=== PATIENT | female | born 1990 | race Caucasian/White ===

== ENCOUNTER 2019-02-24 04:31 | Emergency (ER) | payer BC ==
[~2019-02-24] VITALS: Ht 162.6 cm; Wt 81.6 kg
[2019-02-24] MEDS ORDERED: BIRTHCONTROL (04:37)
[2019-02-24] MEDS ORDERED: CITA20TA16 PO (04:37)
--- NOTE | 2019-02-24 04:51 | NUR ---
Dr. Oropeza at bedside for MSE.
[2019-02-24] MEDS ORDERED: KETOROLAC TROMETHAMINE 30 MG INJ IVP ONE (05:00)
[2019-02-24] MEDS ORDERED: FAMOTIDINE. 20 MG/2 ML VIAL IV ONE ×2 (05:00→05:09)
--- NOTE | 2019-02-24 05:10 | NUR ---
Pt provided urine sample, sent to lab.
[2019-02-24 05:25] LABS: BASOPHILS # (AUTO) 0.1 K/uL (0.0-8.0); BASOPHILS % (AUTO) 0.8 % (0.0-2.0); EOSINOPHILS # (AUTO) 0.2 K/uL (0.0-0.7); EOSINOPHILS % (AUTO) 2.3 % (0.0-7.0); HEMATOCRIT 38.6 % (31.2-41.9); LYMPHOCYTES # (AUTO) 2.8 K/uL (20.0-40.0); LYMPHOCYTES % (AUTO) 42.3 % (20.5-51.5); MEAN CORPUSCULAR HEMOGLOBIN 30.2 uug (24.7-32.8); MEAN CORPUSCULAR HGB CONC 34 g/dL (32.3-35.6); MEAN CORPUSCULAR VOLUME 89.6 fL (75.5-95.3); MONOCYTES # (AUTO) 0.5 K/uL (2.0-10.0); MONOCYTES % (AUTO) 7.7 % (0.0-11.0); NEUTROPHILS # (AUTO) 3.1 K/uL (1.8-8.9); NEUTROPHILS % (AUTO) 46.9 % (38.5-71.5); PLATELET COUNT (AUTO) 261 K/uL (179-408); RED BLOOD CELL COUNT(AUTO) 4.31 MIL/uL (3.63-4.92); WHITE BLOOD COUNT (AUTO) 6.6 K/uL (3.8-11.8)
[2019-02-24 05:28] LABS: *BILIRUBIN,URIN NEGATIVE (NEGATIVE); *BLOOD, URINE 2+ (NEGATIVE); *CLARITY,URINE CLEAR (CLEAR); *COLOR,URINE YELLOW (YELLOW); *KETONES,URINE NEGATIVE (NEGATIVE); *UROBILINOGEN,URINE 0.2 E.U./dl (NORMAL); LEUKOCYTE ESTERASE ,URINE NEGATIVE (NEGATIVE); NITRITE, URINE NEGATIVE (NEGATIVE); PH,URINE 6.5 (5.0-8.0); UGLUCOSE NEGATIVE (NEGATIVE)
[2019-02-24 05:32] LABS: CARBON DIOXIDE 25 mmol/L (21-32); CHLORIDE 102 mmol/L (98-107); POTASSIUM 3.8 mmol/L (3.5-5.1)
[2019-02-24 05:33] LABS: CREATININE 0.7 mg/dL (0.6-1.3); GLUCOSE 96 mg/dL (74-106); UREA NITROGEN, BLOOD 14 mg/dL (7-18)
[2019-02-24 05:39] LABS: BACTERIA,URINE FEW /HPF (NONE SEEN); SQUAMOUS EPITHELIAL CELL,UR NONE SEEN /HPF (NONE SEEN); WBC,URINE 0-3 /HPF (0-3)
[2019-02-24 05:39] LABS: ALANINE AMINOTRANSFERASE 28 U/L (14-59); ALKALINE PHOSPHATASE 52 U/L (50-136); ASPARTATE AMINOTRANSFERASE 10 U/L (15-37); BILIRUBIN,DIRECT 0.1 mg/dL (0.0-0.2); BILIRUBIN,TOTAL 0.2 mg/dL (0.2-1.0); LIPASE 293 U/L (73-393); TOTAL PROTEIN, SERUM 7.4 g/dL (6.4-8.2)
--- NOTE | 2019-02-24 05:43 | NUR ---
Ultrasound at bedside.
[2019-02-24] MEDS ORDERED: KETOROLAC TROMETHAMINE 30 MG INJ ONE (05:54)
--- NOTE | 2019-02-24 06:20 | NUR ---
Patient discharged to home in stable conditon. Written and verbal after care instructions given. Patient verbalizes understanding of instructions. Pt ambulated out of ER with steady gait, no acute signs of distress, VSS, all belongings taken, IV site discontinued.
[2019-02-24 06:21] VITALS: BP 140/101
== END 2019-02-24 06:21 | disposition home or self-care (01) ==
LOC: ER 04:43
DX: R10.13 Epigastric pain (principal); R10.11 Right upper quadrant pain; R42 Dizziness and giddiness; R07.2 Precordial pain; F32.9 Major depressive disorder, single episode, unspecified; F41.9 Anxiety disorder, unspecified; Z88.1 Allergy status to other antibiotic agents; Z79.899 Other long term (current) drug therapy
CPT/HCPCS: 36415; 76705; 80048; 80076; 81000; 81001; 83690; 84484; 84702; 85025; 93005 ×2; 96374; 96375; 99284; J1885; J3490; 70030-TC; A4663

== ENCOUNTER 2020-01-02 08:34 | Emergency (ER) | payer BC ==
[~2020-01-02] VITALS: Ht 165.1 cm; Wt 83.5 kg
[~2020-01-02 08:34] MED LIST: BIRTHCONTROL; CITA20TA16 PO
--- NOTE | 2020-01-02 08:40 | NUR ---
Dr. Garcia at bedside for MSE
[2020-01-02] MEDS ORDERED: KETOROLAC TROMETHAMINE 15 MG INJ IM ONE (09:00)
[2020-01-02] MEDS ORDERED: KETOROLAC TROMETHAMINE 30 MG INJ ONE (09:00)
--- NOTE | 2020-01-02 09:35 | NUR ---
Patient discharged to home in stable condition. Written and verbal after care instructions given. Patient verbalizes understanding of instructions. Stressed follow up or return to ER for worsening s/s. Patient ambulating with steady gait. NAD noted. Patient states pain has improved and denies any chest pain at this time
[2020-01-02 09:38] VITALS: BP 137/75
== END 2020-01-02 09:35 | disposition home or self-care (01) ==
LOC: ER 08:34
DX: R07.89 Other chest pain (principal); F32.9 Major depressive disorder, single episode, unspecified; Z79.899 Other long term (current) drug therapy; Z79.3 Long term (current) use of hormonal contraceptives
CPT/HCPCS: 71045; 93005; 96372; 99284; J1885; A4663